=== PATIENT | female | born 1985 | race Caucasian/White ===

== ENCOUNTER → 2023-06-22 03:25 | Outpatient (CLI) | payer MEDICAID, SELFPAY ==
--- NOTE | 2023-06-22 | DI.CT_ITS ---
Exam(s) CT CHEST WO EXAM: CT CHEST WO CLINICAL HISTORY: SCREENING FOR LUNG CA,Z12.2,FORMER SMOKER. TECHNIQUE: Multi planar reconstructions were performed. CONTRAST MATERIAL: None COMPARISON: CR CHEST 2 VIEWS PA,LAT from 12/12/2009 FINDINGS: CHEST: LUNGS: There are COPD emphysematous changes. There are no confluent infiltrates nor pleural effusion s. However, there are bilateral pulmonary nodules noted. The largest of these noncalcified nodules is in the posterior basal segment of the left lower lobe and measures 7 mm. The largest nodule in th e right lung measures 6 mm, it located in the right lower lobe just above the hemidiaphragm.. MEDIASTINUM: There is no obvious hilar nor mediastinal adenopathy. CARDIAC: Heart size is normal. There is no pericardial effusion.Caliber of the thoracic aorta is wit hin normal limits. VISUALIZED UPPER ABDOMEN:No obvious abnormality OSSEOUS: No significant osseous lesions.No fractures. IMPRESSION: 1. There are multiple bilateral noncalcified lung nodules measuring up to 7 mm size, as described abo ve. No pleural effusions nor intrathoracic adenopathy evident. 2. Recommend short-term follow-up CT scan in 6 months 3. Lung rads category: [id number] follow-up repeat LD CT in 6 months RADIATION DOSE DELIVERED: Total DLP DATA REPOSITORY: All CT scans at this facility are submitted to the National Radiology Data Registry (NRDR) Dose Index Registry (DIR) with the [employer] (ACR). RADIATION OPTIMIZATION: All CT scans at this facility use at least one of these dose optimization te chniques: automated exposure control; mA and/or kV adjustment per patient size (includes targeted exa ms where dose is matched to clinical indication); or iterative reconstruction.
== END ==
PROVIDERS: PCP Registered Nurse; Visit Provider Registered Nurse
DX: Z12.2 Encounter for screening for malignant neoplasm of respiratory organs (principal); Z87.891 Personal history of nicotine dependence; R91.1 Solitary pulmonary nodule
CPT/HCPCS: 71250

== ENCOUNTER 2023-09-23 01:18 | Outpatient (CLI) | payer MEDICAID, SELFPAY ==
[2023-09-23] MEDS: Levalbuterol HFA 15 GM INH 4 PUFF IH (11:08)
[2023-09-23] MEDS: Inhaler, Assist Device 1 EACH MC (11:09)
--- NOTE | 2023-09-24 09:31 | W.PFT ---
Date of service: 09/23/23 Time of Service: 08:03 Pulmonary Function Test Result Indications: Emphysema Interpretation Spirometry: There is moderate airflow limitation. Significant bronchodilator response. The flow volume loop does have both inspiratory and expiratory blunting. Lung Volumes: There is air trapping Diffusion Capacity: Decreased diffusion Airway Pressure: Normal airways resistance Impression Moderate airflow obstruction with a bronchodilator response and decreased diffusion. The appearance of the flow volume loop may be consistent with a fixed upper airway obstruction. Consider neck CT for further evaluation if clinically appropriate. Clinical Correlation therefore is recommended.
== END 2023-09-23 01:19 | disposition home or self-care (01) ==
LOC: RT 01:19
PROVIDERS: PCP Registered Nurse; Visit Provider Physician Assistant Surgical
DX: J43.9 Emphysema, unspecified (principal)
CPT/HCPCS: 94060; 94726; 94729

== ENCOUNTER → 2023-10-22 00:27 | Outpatient (CLI) | payer MEDICAID, SELFPAY ==
[2023-10-22 13:41] LABS: CREATININE 0.8 mg/dL (0.55-1.02); Estimated GFR 96.06 (mL/min/1.73m2)
[2023-10-22] MEDS: Omnipaque 350 MG/ML 100 ML BTL IJ (15:06)
[2023-10-22] MEDS: Normal Saline - Diluent 50 ML VIAL IJ (15:07)
--- NOTE | 2023-10-22 15:08 | DI.CT_ITS ---
Exam(s) CT NECK W EXAM: CT NECK W CLINICAL HISTORY: ? FIXED OBSTRUCTION,ABNL PFT,R94.2. TECHNIQUE: Imaging Protocol: Axial computed tomography images with coronal and sagittal reformatted images were created and reviewed. CONTRAST MATERIAL: Intravenous: Omnipaque 350 Contrast volume:100mL COMPARISON: No exams were available for comparison FINDINGS: A marker was placed in the posterior neck corresponding to the palpable abnormality. The marker nicholas esponds to the area of the tip of the C7 spinous process. The spinous process is unremarkable. No s oft tissue mass is identified in this region. There is mild infiltration of the subcutaneous fat whi ch may represent a mild inflammatory process. No focal fluid collection is seen to suggest an absces s. Orbits and orbital soft tissues: Within normal limits. Visualized paranasal sinuses: There is mucous retention cyst or polyp in the right maxillary sinus. The remaining visualized paranasal sinuses are clear. Nasopharynx: Within normal limits. Oropharynx: Within normal limits. Hypopharynx: Within normal limits. Larynx: Within normal limits. Retropharyngeal space: Within normal limits. Parotids/submandibular: Within normal limits. Thyroid gland: Within normal limits. Lymphadenopathy: There is scattered lymph nodes seen along the level one to level three all measurin g less than 8 mm in short axis diameter which are physiologic in nature. Trachea: Within normal limits. Lung apices: Paraseptal and centrilobular emphysematous changes are present. Bones: Within normal limits for the patient's age. There is mild reversal of the normal cervical dale dosis centered at C5-C6. Carotids/Jugular: Within normal limits. Soft tissues: Within normal limits. IMPRESSION: 1. No evidence of a soft tissue mass or bony abnormality corresponding to the palpable area on the po sterior neck. The area appears to correspond to the tip of the C7 spinous process which is unremarka ble. 2. Mucous retention cyst in the right maxillary sinus. 3. Paraseptal and centrilobular emphysematous changes are seen in the lung apices. 4. No evidence of a neck mass, fluid collection or adenopathy. 5. The airway appears patent and unremarkable. RADIATION DOSE DELIVERED: 327.2mGy.cm Total DLP 327.2mGy.cm Total DLP DATA REPOSITORY: All CT scans at this facility are submitted to the National Radiology Data Registry (NRDR) Dose Index Registry (DIR) with the [employer] (ACR). RADIATION OPTIMIZATION: All CT scans at this facility use at least one of these dose optimization te chniques: automated exposure control; mA and/or kV adjustment per patient size (includes targeted exa ms where dose is matched to clinical indication); or iterative reconstruction.
== END ==
PROVIDERS: PCP Registered Nurse; Visit Provider Physician Assistant Surgical
DX: R94.2 Abnormal results of pulmonary function studies (principal); R91.8 Other nonspecific abnormal finding of lung field
CPT/HCPCS: 70491; 82565; J3490

== ENCOUNTER 2023-12-17 00:06 | Outpatient (CLI) | payer MEDICAID, SELFPAY ==
--- NOTE | 2023-12-17 08:30 | DI.CT_ITS ---
Exam(s) CT CHEST WO EXAM: CT CHEST WO CLINICAL HISTORY: f/u nodules stability,r91.8. TECHNIQUE: Imaging protocol: Axial computed tomography images were obtained and coronal and sagittal reformatted images were created and reviewed. COMPARISON: CT CT CHEST WO from 06/22/2023 FINDINGS: Tracheobronchial tree: Patent where visualized. No bronchiectasis is present. Pulmonary parenchyma: Moderate centrilobular and paraseptal emphysematous changes are present. There are stable pulmonary nodules. No new pulmonary nodules are present. There is atelectasis seen in t he right middle lobe. No focal consolidating infiltrates are seen. Mediastinum and Yoko: No dominant adenopathy or fluid collection. The esophagus is unremarkable. Thyroid gland: Unremarkable. Pleura: No effusion or pneumothorax. Heart: The heart is not dilated. No coronary artery calcifications are seen. No pericardial effusion. Aorta: Thoracic aorta non-dilated. Upper abdomen: Unremarkable. Lymph nodes: Within normal limits. Soft tissues: Unremarkable. Bones:Within normal limits for the patient's age. IMPRESSION: 1. Stable pulmonary nodules. No new pulmonary nodules. 2. No acute pulmonary process. RADIATION DOSE DELIVERED: 175.13mGy.cm Total DLP 175.13mGy.cm Total DLP DATA REPOSITORY: All CT scans at this facility are submitted to the National Radiology Data Registry (NRDR) Dose Index Registry (DIR) with the [employer] (ACR). RADIATION OPTIMIZATION: All CT scans at this facility use at least one of these dose optimization te chniques: automated exposure control; mA and/or kV adjustment per patient size (includes targeted exa ms where dose is matched to clinical indication); or iterative reconstruction.
== END 2023-12-17 00:26 ==
LOC: DI 00:06
PROVIDERS: PCP Registered Nurse; Visit Provider Student in an Organized Health Care Education/Training Program
DX: R91.8 Other nonspecific abnormal finding of lung field (principal)
CPT/HCPCS: 71250

== ENCOUNTER 2023-12-28 19:23 | Outpatient (REF) | payer MEDICAID, SELFPAY ==
[2023-12-28 20:49] LABS: Rheumatoid Factor <8.6 IU/mL (<12.0)
[2023-12-29 09:52] LABS: Cyclic Citrullinated Peptide <2.5 U/mL (<5.0)
[2023-12-29 10:41] LABS: Lyme Ab w Rflx to Lyme Confirm Negative (Negative)
[2023-12-29 14:10] LABS: ANA Interpretation Negative (Negative)
[2023-12-31 15:47] LABS: Anaplasma phagocytophilum Negative (Negative); B. miyamotoi PCR Negative (Negative); Babesia divergens/MO-1 Negative (Negative); Babesia duncani Negative (Negative); Babesia microti Negative (Negative); Ehrlichia chaffeensis Negative (Negative); Ehrlichia ewingii/canis Negative (Negative); Ehrlichia muris eauclairensis Negative (Negative)
== END 2023-12-28 19:24 | disposition home or self-care (01) ==
LOC: LBN 19:23
PROVIDERS: PCP Registered Nurse; Visit Provider Physician Assistant Surgical
DX: J43.8 Other emphysema (principal); R91.8 Other nonspecific abnormal finding of lung field; W57.XXXA Bitten or stung by nonvenomous insect and other nonvenomous arthropods, initial encounter; F17.210 Nicotine dependence, cigarettes, uncomplicated; J45.909 Unspecified asthma, uncomplicated
CPT/HCPCS: 86200; 87798; 86038; 86431; 86618

== ENCOUNTER 2024-03-21 01:34 | Outpatient (CLI) | payer MEDICAID, SELFPAY ==
--- NOTE | 2024-03-21 06:45 | DI.RAD_ITS ---
Exam(s) XR FOOT LT COMPLETE XR FOOT RT COMPLETE EXAM: XR FOOT RT COMPLETE CLINICAL HISTORY: Right foot pain,m79.671. TECHNIQUE: 2D digital imaging was performed. Three views of both feet. COMPARISON: CR XR FOOT LT COMPLETE from 03/21/2024 FINDINGS: BONES: No acute fracture is present. No bony destructive lesion is seen. Small ossicles adjacent to the cuboid bilaterally. JOINTS: No dislocation present. Mild degenerative changes at the 1st MTP joints bilaterally. Mild b ilateral 1st metatarsal varus and hallux valgus. Of the plantar arches are maintained. SOFT TISSUE: Normal. IMPRESSION: Mild bilateral degenerative changes of the 1st MTP joints and mild bilateral hallux valgus. DATA REPOSITORY: RADIATION DOSE DELIVERED:
== END 2024-03-21 01:54 ==
LOC: DI 01:34
PROVIDERS: PCP Registered Nurse; Visit Provider Podiatrist
DX: M79.672 Pain in left foot (principal); M79.671 Pain in right foot
CPT/HCPCS: 73630

== ENCOUNTER → 2025-03-26 00:14 | Outpatient (CLI) | payer MEDICAID, SELFPAY ==
--- NOTE | 2025-03-26 06:30 | DI.CT_ITS ---
Exam(s) CT CHEST WO EXAM: CT CHEST WO CLINICAL HISTORY: follow up RLL nodule.R91.8. TECHNIQUE: Imaging protocol: Axial computed tomography images were obtained and coronal and sagittal reformatted images were created and reviewed. Computer aided detection (CAD) was utilized. CONTRAST MATERIAL: Noncontrast COMPARISON: CT CT CHEST WO from 06/22/[address] CHEST WO from 12/17/2023 FINDINGS: Pulmonary parenchyma: No consolidation. There are stable bilateral pulmonary nodules, in the lower lobes. The largest in is at the left costophrenic angle measuring 7 millimeters. There is a 6 millimeter nodule in the right posterior lower lobe. No suspicious nodules. Interstitial changes: None. Emphysema: Mild paraseptal emphysema greater at the upper lobes. Tracheobronchial tree: No mucous plugging. No bronchiectasis . Pleura: No effusion or pneumothorax. Heart: The heart is mildly dilated. The coronary arteries show mild calcifications. Aorta: Thoracic aorta non-dilated. Mild atherosclerotic changes. Lymph nodes: No enlarged lymph nodes. Bones: Degenerative changes are seen. No evidence of compression fracture. Upper abdomen: Unremarkable. Soft tissues: Unremarkable. IMPRESSION: Stable bilateral pulmonary nodules. No acute abnormality. RADIATION DOSE DELIVERED: DATA REPOSITORY: All CT scans at this facility are submitted to the National Radiology Data Registry (NRDR) Dose Index Registry (DIR) with the [employer] (ACR). RADIATION OPTIMIZATION: All CT scans at this facility use at least one of these dose optimization techniques: automated exposure control; mA and/or kV adjustment per patient size (includes targeted exams where dose is matched to clinical indication); or iterative reconstruction.
== END ==
LOC: DI 00:14
PROVIDERS: PCP Nurse Practitioner Family; Visit Provider Physician Assistant Surgical
DX: R91.8 Other nonspecific abnormal finding of lung field (principal)
CPT/HCPCS: 71250

== ENCOUNTER → 2025-04-11 11:42 | Outpatient (CLI) | payer MEDICAID, SELFPAY ==
--- NOTE | 2025-04-11 11:46 | DI.US_ITS ---
APPROVED REPORT EXAM: Comprehensive 2D, Doppler, and color-flow Echocardiogram Patient Location: Out-Patient [facility]ater[facility] [employer] Manager: Alayna Cummings RDCS (AE) Indications: Mild cardiomegaly Other Information Study Quality: Adequate Conclusion Normal left ventricular wall thickness and chamber size. Ejection fraction is 60 to 65%. Wall motion is normal Normal right ventricular size and function Both atria are normal in size There is no structural or hemodynamically significant valvular disease Wall motion Left Ventricle The left ventricle is normal size. The left ventricular systolic function is normal. The left ventricular ejection fraction is within the normal range. There is normal left ventricular wall thickness. There is normal LV segmental wall motion. There is no ventricular septal defect visualized. LVEF is 60-65%. Right Ventricle The right ventricle is normal size. The right ventricular systolic function is normal. Atria The left atrium size is normal. The right atrium size is normal. The interatrial septum is intact with no evidence for an atrial septal defect. Aortic Valve The aortic valve is normal in structure. Aortic valve is trileaflet. There is no aortic valvular stenosis. No aortic regurgitation is present. Mitral Valve The mitral valve is normal in structure. No evidence of mitral valve stenosis. Trace mitral regurgitation. Tricuspid Valve The tricuspid valve is normal in structure. There is no tricuspid valve stenosis. Trace tricuspid regurgitation. Unable to assess PA pressure. Pulmonic Valve The pulmonary valve is normal in structure. There is no pulmonic valvular stenosis. There is no pulmonic valvular regurgitation. Great Vessels The aortic root is normal in size. The ascending aorta is normal in size. Aortic arch is normal in caliber. IVC is normal in size and collapses >50% with inspiration. Pericardium There is no pericardial effusion. 2D Dimensions IVSD d PLAX 0.70 cm F: 0.6-1.0 Ao Root d 2.78 cm F: 2.7 - 3.3 LVPW d PLAX 0.71 cm F: 0.6 - 1.0 Ao Asc Diam d 2.82 cm F: 2.3 - 3.1 LVID d PLAX 4.80 cm F: 3.8 - 5.2 LVDs 3.10 cm F: 2.2 - 3.5 LV EF Teichholz 64.6 % FS 35.30 % LV EDV (Teich) 107.0 mL LV ESV (Teich) 37.9 mL M-Mode TAPSE 2.23 cm (M/F) >1.7 Auto EF LV EDV A4C 104.8 mL LV EDV A2C 126.1 mL LV EDV BP 116.7 mL LV ESV A4C 41.8 mL LV ESV A2C 44.5 mL LV ESV BP 44.3 mL LVEF(%) A4C 60.1 % LVEF(%) A2C 64.7 % LVEF(%) BP 62.0 % LV SV A4C 63.0 ml LV SV A2C 81.6 ml LV SV BP 72.4 ml LV CO A4C 3.6 L/min LV CO A2C 4.9 L/min LV CO BP 4.3 L/min HR A4C 57.51 BPM HR A2C 59.80 BPM LV EDV Index (BP) LA Volume LA Length A4C 4.6 cm LA Length A2C 4.8 cm LA Area A4C s 13.84 cm2 LA Area A2C s 15.09 cm2 LA Vol A4C A-L 35.57 mL LA Vol A2C A-L 40.05 mL LA Vol Biplane A-L 38.8 mL LA Vol/BSA A4C A-L LA Vol/BSA A2C A-L LA Vol/BSA BP A-L 22.7 mL/m2 LA Vol A4C MOD 32.4 mL LA Vol A2C MOD 37.6 mL LA Vol BP MOD 35.4 mL RA Volume RA Area A4C 10.1 cm2 RA ESV A4C (A-L) 23.3mL RA Vol/BSA A4C A-L RA Length A4C 3.7 cm RA ESV A4C (MOD) 22.6mL LV Diastology MV E' medial 0.112 (>0.07 m/s) MV E Vmax 0.92 (0.4-1.3 m/s) MV E/E' MED 8.15 (<14) MV A Vmax 0.75 (0.4-1.3 m/s) E/A Ratio 1.2 Aortic Valve AoV Vmax 1.39 m/s LVOT Vmax 1.33 m/s AoV Peak Grad 7.7 mmHg LVOT Peak Grad 7.1 mmHg AoV Area (Vmax) 2.68 cm2 LVOT VTI 0.264 m AoV VTI 0.320 m LVOT Mean Grad 3.8 mmHg AoV Mean Alexis. 0.92 m/s LVOT SV 73.50 mL AoV Mean Grad 4.0 mmHg LVOT Diam s 1.85 cm AoV Area (VTI) 2.30 cm2 AV Regurg Peak Gr. 7.69 mmHg Velocity Ratio 0.96 Mitral Valve MV DT 225 (160-240 msec) MV Vmax TIPS 0.94 m/s MV Mean Grad 1.2 (<2mmHg) MV VTI 0.326 m Pulmonary Valve PV Vmax 1.06 (0.5-1.5 m/s) RVOT Vmax 0.93 m/s PV Peak Grad 4.5 mmHg RVOT Peak Gr. 3.5 mmHg PV Mean Alexis 0.80 m/s RVOT VTI 0.235 m PV Mean Grad 2.8 mmHg RVOT Mean Gr. 2.1 mmHg Tricuspid Valve RA Pressure 3.00 mmHg TV S' 0.17 m/s
== END ==
LOC: DI 11:42
PROVIDERS: PCP Nurse Practitioner Family; Visit Provider Physician Assistant Surgical
DX: I51.7 Cardiomegaly (principal)
CPT/HCPCS: 93306